=== PATIENT | female | born 1990 | race Two or more races ===

== ENCOUNTER 2023-01-19 03:59 | Day surgery (SDC) | payer BC ==
[2023-01-17 16:04] VITALS: BMI 20.3
[~2023-01-19 03:59] MED LIST: ceFAZolin SODIUM 1 GM VIAL IVPB ONE
[2023-01-19] MEDS ORDERED: PHENAZOPYRIDINE HCL 100 MG TABLET (FP) PO ONE (07:00)
[2023-01-19] MEDS ORDERED: SCOPOLAMINE HYDROBROMIDE 1 PATCH PATCH.TD72 TD ONE (07:00)
[2023-01-19] MEDS ORDERED: TRANEXAMIC ACID 1000 MG/10 ML VIAL IVPUSH ONE (07:00)
[2023-01-19] MEDS ORDERED: GABAPENTIN 300 MG CAPSULE PO ONE (07:00)
[2023-01-19] MEDS ORDERED: ACETAMINOPHEN 1000 MG/100 ML BAG IVPB ONE (07:00)
[2023-01-19] MEDS ORDERED: PHENAZOPYRIDINE HCL 100 MG TABLET (FP) ONE (07:14)
[2023-01-19] MEDS ORDERED: GABAPENTIN 300 MG CAPSULE ONE (07:14)
[2023-01-19] MEDS ORDERED: VASOPRESSIN 20 UNITS/ML VIAL IV ONE (07:46)
[2023-01-19] MEDS ORDERED: TRANEXAMIC ACID 1000 MG/10 ML VIAL ONE (08:05)
[2023-01-19] MEDS ORDERED: ACETAMINOPHEN INJECTION 100 ML IVPB ONE (09:28)
[2023-01-19] MEDS ORDERED: ceFAZolin SODIUM 1 GM VIAL IVPB ONE (10:46)
[2023-01-19] MEDS ORDERED: PROPOFOL 20 ML ONE (11:03)
[2023-01-19] MEDS ORDERED: SUCCINYLCHOLINE CHLORIDE 200 MG/10 ML SYRINGE ONE (11:03)
[2023-01-19] MEDS ORDERED: BUPIVACAINE HCL/PF 0.5% (5MG/ML) 10 ML VIAL ONE (11:36)
[2023-01-19] MEDS ORDERED: BUPIVACAINE HCL/PF 0.5% (5MG/ML) 10 ML VIAL IJ ONE ×2 (11:38)
[2023-01-19] MEDS ORDERED: HYDROmorphone *PCA* 10MG/50ML DISP.SYRIN PCA SCH (12:00)
[2023-01-19] MEDS ORDERED: HYDROmorphone *PCA* 10MG/50ML DISP.SYRIN ONE (12:03)
[2023-01-19] MEDS ORDERED: BISACODYL 5 MG TABLET.DR (FP) PO PRN (12:28)
[2023-01-19] MEDS ORDERED: DOCUSATE SODIUM 100 MG CAPSULE (FP) PO PRN (12:28)
[2023-01-19] MEDS ORDERED: SIMETHICONE 80 MG TAB.CHEW (FP) PO PRN (12:28)
[2023-01-19] MEDS ORDERED: ONDANSETRON 4 MG/2 ML VIAL IVPUSH PRN (12:28)
[2023-01-19] MEDS ORDERED: oxyCODONE HCL 5 MG TABLET PO PRN ×2 (12:28)
[2023-01-19 17:12] VITALS: RESP 18
[2023-01-19 18:36] LABS: HEMOGLOBIN 12.6 GM/dL (10.7-15.3); MCH 29.7 pg (25.7-33.7); MCHC 33.3 g/dl (32.0-36.0); MEAN CELL VOLUME 89.2 fl (80-96); PLATELET COUNT 198 10^3/uL (134-434); RBC 4.26 M/mm3 (3.60-5.2); RDW 13.3 % (11.6-15.6); WHITE BLOOD COUNT 7.8 K/mm3 (4.0-10.0)
[2023-01-19] MEDS: CEFAZOLIN 1 GM in DEXTROSE 5%-WATER - 50 ML IVPB SCH (18:44)
[2023-01-19 18:58] LABS: BLOOD UREA NITROGEN 9.7 mg/dL (7-18); CALCIUM 8.9 mg/dL (8.5-10.1)
[2023-01-19] MEDS ORDERED: ACETAMINOPHEN 325 MG TABLET (FP) PO SCH (19:00)
[2023-01-19 19:01] LABS: CREATININE 0.9 mg/dL (0.55-1.3)
[2023-01-19] MEDS: IBUPROFEN 800 MG/8 ML IJ IVPB SCH (22:36)
[2023-01-19] MEDS: ACETAMINOPHEN 500 MG TABLET (FP) PO SCH (23:25)
[2023-01-20] MEDS: CEFAZOLIN 1 GM in DEXTROSE 5%-WATER - 50 ML IVPB SCH ×3 (02:45→18:08)
[2023-01-20] MEDS: SODIUM CHLORIDE 1,000 ML IV SCH ×2 (03:32→12:41)
[2023-01-20] MEDS: ACETAMINOPHEN 500 MG TABLET (FP) PO SCH ×4 (05:04→16:36)
[2023-01-20] MEDS: IBUPROFEN 800 MG/8 ML IJ IVPB SCH ×2 (06:15→13:04)
[2023-01-20 08:29] LABS: HEMATOCRIT 39.2 % (32.4-45.2); HEMOGLOBIN 13.1 GM/dL (10.7-15.3); MCH 29.9 pg (25.7-33.7); MCHC 33.3 g/dl (32.0-36.0); MEAN CELL VOLUME 89.8 fl (80-96); MEAN PLT VOLUME 10.7 fl (7.5-11.1); PLATELET COUNT 180 10^3/uL (134-434); RBC 4.37 M/mm3 (3.60-5.2); RDW 13.8 % (11.6-15.6); WHITE BLOOD COUNT 6.4 K/mm3 (4.0-10.0)
[2023-01-20 08:51] LABS: BLOOD UREA NITROGEN 7.4 mg/dL (7-18); CALCIUM 8.8 mg/dL (8.5-10.1)
[2023-01-20 08:55] LABS: CREATININE 0.9 mg/dL (0.55-1.3)
[2023-01-20] MEDS ORDERED: ENOXAPARIN NA (PORCINE) 40 MG/0.4 ML DISP.SYRIN SQ SCH (10:00)
[2023-01-20] MEDS ORDERED: oxyCODONE HCL 5 MG TABLET PO PRN ×2 (10:41)
[2023-01-20 14:17] VITALS: BP 122/74; PULSE 76; TEMP 98.5
== END 2023-01-20 18:59 | disposition home or self-care (01) ==
LOC: JASUSAT 03:59 → J6S 16:23 → JASUSAT 01-20 18:59
PROVIDERS: ATTEND Obstetrics & Gynecology
PROC: 0UB00ZZ Excision of Right Ovary, Open Approach (ICD-10-PCS; 2023-01-19)
PROC: 0UB90ZZ Excision of Uterus, Open Approach (ICD-10-PCS; principal; 2023-01-19 09:50)
DX: D25.9 Leiomyoma of uterus, unspecified (principal); N83.11 Corpus luteum cyst of right ovary
CPT/HCPCS: 36415; 80048; 81025; 85027; 86850; 86900; 86901; 88305-TC; 88307-TC; 94760